=== PATIENT | male | born 1950 | race Caucasian/White ===

== ENCOUNTER 2022-08-02 15:31 | Observation (INO) ==
[2022-08-02 17:06] LABS: Basophils # 0.1 10*3/uL (0.0-0.2); Basophils % 0.4 % (0.0-0.8); Eosinophils # 0.1 10*3/uL (0.0-0.87); Eosinophils % 0.8 % (0.00-10.9); Hemoglobin 11.9 GM/DL (14.0-18.0); Immature Granulocytes % 0.4 %; Immature Granulocytes Absolute 0.05 #; Lymphocytes # 2.1 10*3/uL (1.4-4.0); Lymphocytes % 16.4 % (21.2-54.2); Mean Corpuscular HGB Conc 33.1 GM/DL (32-36); Mean Corpuscular Volume 89.8 FL (87-102); Mean Platelet Volume 11.1 FL (9.6-12.0); Monocytes % 7.6 % (1.7-12.7); Neutrophils % 74.4 % (38.7-73.9); Platelet Count 307 T/CUMM (130-400); Red Blood Count 4.01 MC/CUMM (3.8-5.5); Red Cell Distribution Width 14.2 % (9.3-17.3); White Blood Count 12.8 T/CUMM (4-12)
[2022-08-02 17:14] LABS: INR 1.1; PT Patient Result 11.9 SECS (10.1-12.1); Partial Thromboplastin Time 28.3 SECS (23.7-32.9)
[2022-08-02 17:47] LABS: Alanine Aminotransferase 19 U/L (16-61); Albumin 3.4 G/DL (3.4-5.0); Alkaline Phosphatase 66 U/L (45-117); Aspartate Amino Transferase 11 U/L (0-37); Bilirubin,Total < 0.39 MG/DL (0.20-1.00); Blood Urea Nitrogen 17 MG/DL (7-18); Calcium 8.6 MG/DL (8.5-10.1); Carbon Dioxide 22 MMOL/L (21-32); Chloride 110 MMOL/L (98-107); Glucose 130 MG/DL (74-106); Osmolality,Calculated 280.5 MOS/KG (273-304); Potassium 4.3 MMOL/L (3.5-5.1); Sodium 139 MMOL/L (136-145); Total Protein 6.6 G/DL (6.4-8.2)
[2022-08-02 19:29] LABS: Bilirubin,Urine Negative (Negative); Blood, Urine Negative (Negative); Glucose,Urine (UA) Negative (Negative); Ketones,Urine Negative (Negative); Nitrite,Urine Negative (Negative); Protein,Urine Negative (Negative); Urine Appearance Clear (Clear); Urine Color Yellow (Yellow); Urine Specific Gravity 1.015 (1.001-1.035); Urine pH 7.5 (4.5-8.0)
[2022-08-02 19:30] LABS: Urine Urobilinogen 0.2 eU/dL (<2.0)
[2022-08-02 19:37] LABS: Amorphous Crystals,Urine Occasional /HPF (Few); Hyaline Casts,Urine 8 /LPF (0-3); Mucus,Urine Occasional /LPF (Occasional); RBC,Urine 1 /HPF (0-4)
[2022-08-02] MEDS ORDERED: ONDANSETRON 4 MG/2 ML VIAL IV PRN (21:31)
[2022-08-02] MEDS ORDERED: hydrALAZINE 20 MG/1 ML VIAL IV PRN (21:31)
[2022-08-02] MEDS ORDERED: SODIUM CHLORIDE 0.45% 1,000 ML IV SCH (22:00)
[2022-08-03] MEDS: ASPIRIN 300 MG SUPP RECTAL SCH ×2 (01:46→09:42)
[2022-08-03 05:28] LABS: Basophils # 0.1 10*3/uL (0.0-0.2); Basophils % 0.5 % (0.0-0.8); Eosinophils # 0.1 10*3/uL (0.0-0.87); Hematocrit 37.2 VOL% (42.0-52.0); Hemoglobin 12.3 GM/DL (14.0-18.0); Immature Granulocytes % 0.4 %; Immature Granulocytes Absolute 0.04 #; Lymphocytes # 3.3 10*3/uL (1.4-4.0); Lymphocytes % 29.9 % (21.2-54.2); Mean Corpuscular HGB Conc 33.1 GM/DL (32-36); Mean Corpuscular Volume 89.4 FL (87-102); Mean Platelet Volume 10.8 FL (9.6-12.0); Monocytes % 9.3 % (1.7-12.7); Neutrophils % 58.9 % (38.7-73.9); Platelet Count 311 T/CUMM (130-400); Red Blood Count 4.16 MC/CUMM (3.8-5.5); Red Cell Distribution Width 14.2 % (9.3-17.3)
[2022-08-03 05:35] LABS: INR 1.1; PT Patient Result 11.7 SECS (10.1-12.1); Partial Thromboplastin Time 29.4 SECS (23.7-32.9)
[2022-08-03 05:57] LABS: Calcium 8.9 MG/DL (8.5-10.1); Potassium 3.7 MMOL/L (3.5-5.1); Thyroid Stimulating Hormone 1.26 uIU/ml (0.358-3.74); VLDL Cholesterol 20.6 MG/DL
[2022-08-03] MEDS ORDERED: ENOXAPARIN 40 MG/0.4 ML SYRINGE SUBCUT SCH (09:00)
[2022-08-03] MEDS ORDERED: ASPIRIN EC 81 MG TABLET PO SCH (09:36)
[2022-08-03] MEDS ORDERED: CLOPIDOGREL 75 MG TABLET PO SCH (10:00)
[2022-08-03 12:12] VITALS: BP 145/67
== END 2022-08-03 14:08 | disposition home or self-care (01) ==
LOC: EDBD → EDUNIT# → N.ED 15:31 → N.EDINP 15:31 → N.5E 22:18
PROVIDERS: ADMIT Internal Medicine; ATTEND Internal Medicine